=== PATIENT | female | born 1960 | race Caucasian/White ===

== ENCOUNTER 2019-02-04 17:53 | Emergency (ER) | payer OTHER ==
[~2019-02-04] VITALS: Ht 167.6 cm; Wt 89.8 kg
[2019-02-04] MEDS ORDERED: PRINIVIL20 MG PO (18:02)
[2019-02-04] MEDS ORDERED: WATER PILL (18:04)
[2019-02-04 18:23] LABS: ABSOLUTE EOSINOPHILS 0.1 thou/uL (0.0-0.7); ABSOLUTE LYMPHOCYTES 1.2 thou/uL (0.8-5.3); ABSOLUTE MONOCYTES 0.5 thou/uL (0.0-1.2); ABSOLUTE NEUTROPHILS 7.7 thou/uL (1.6-8.1); BASOPHILS 0.4 %; EOSINOPHILS 0.6 %; HEMATOCRIT 43.1 % (37.0-47.0); HEMOGLOBIN 14.8 gm/dL (12.0-15.0); LYMPHOCYTES 12.3 %; MCH 33.2 pg (26.0-34.0); MCHC 34.2 g/dL (28.0-37.0); MCV 97.1 fL (80.0-100.0); MONOCYTES 5.6 %; MPV 9.1 fl. (7.2-11.1); NUCLEATED RBCS 0 /100WBC; PLATELET COUNT* 243 thou/uL (150-400); POLYS 81.1 %; RBC 4.44 mil/uL (4.20-5.00); RDW-CV 14.5 % (10.5-14.5); WBC 9.5 thou/uL (4.0-11.0)
[2019-02-04 18:31] LABS: ANION GAP 13 mmol/L (7-16); BUN 15 mg/dL (7-18); CALCIUM 9.5 mg/dL (8.5-10.1); CHLORIDE 106 mmol/L (98-107); CO2 24 mmol/L (21-32); CREATININE 0.9 mg/dL (0.6-1.3); GLUCOSE 109 mg/dL (70-99); POTASSIUM 3.8 mmol/L (3.5-5.1); SODIUM 143 mmol/L (136-145)
[2019-02-04 18:44] LABS: ALKALINE PHOSPHATASE 98 U/L (46-116); SGOT 20 U/L (15-37); SGPT 30 U/L (30-65); TOTAL BILIRUBIN 0.4 mg/dL (<0.1-1.0); TOTAL PROTEIN 7.7 g/dL (6.4-8.2); TROPONIN-I LEVEL <0.06 ng/mL (<0.06)
[2019-02-04] MEDS ORDERED: KEFLEX500 M1 PO (18:51)
[2019-02-04 19:40] VITALS: BP 140/92
--- NOTE | 2019-02-05 15:52 | EKG ---
[place] [address] ELECTROCARDIOGRAM REPORT Name: NATASHA GAN Room: [facility]#: [id number] Admission: 02/04/19 Attend Phys: Discharge: 02/04/19 Date of : 62 Report #: [id number] THIS REPORT FOR: //name// [facility] ED Test Date: 2019-02-04 Test Time: 18:23:29 Pat Name: NATASHA GAN Department: Room: Gender: F Pole Classifier: GIOVANI : 1960 Requested By: Bonnie Young Order Number: [id number] MD: Dung Valladares Measurements Intervals [place] Rate: 71 P: 59 ID: [id number] QRS: 9 QRSD: 89 T: 25 QT: 383 QTc: 417 Interpretive Statements Sinus rhythm Left atrial enlargement RSR' in V1 or V2, probably normal variant Baseline wander in lead(s) III,aVL No previous ECG available for comparison Electronically Signed On 02-05-2019 15:52:42 CDT by Dung Valladares [email or web address] <ELECTRONICALLY SIGNED> By: Dung Valladares MD, [facility] 02/05/19 1552 1823 182 Dung Valladares MD, [facility] /EPI
== END 2019-02-04 19:42 | disposition home or self-care (01) ==
LOC: M.ERS 17:53
PROVIDERS: Physician Assistant
DX: I10 Essential (primary) hypertension (principal); H66.93 Otitis media, unspecified, bilateral; Z90.710 Acquired absence of both cervix and uterus; Z85.850 Personal history of malignant neoplasm of thyroid